=== PATIENT | female | born 1965 | race Caucasian/White ===

== ENCOUNTER 2022-06-09 21:03 | Emergency (ER) | payer BC ==
[~2022-06-09] VITALS: Ht 172 cm; Wt 106.0 kg
--- NOTE | 2022-06-09 21:25 | ED General ---
General Chief Complaint: Dizziness/Syncope Stated Complaint: DIZZY - NAUSEA Nursing Triage Note: PT TO ED W/ C/O DIZZINESS ONSET 30 MIN HOSPITAL NURSE LIAISON. DENIES ANY INJURIES AT THIS TIME. NO OTHER C/O VOICED Source of Information: Patient Exam Limitations: No Limitations History of Present Illness Date Seen by Provider: Jun 09, 2022 Time Seen by Provider: 21:15 Initial Comments Patient is a 56-year-old female who presents to the emergency room with a chief complaint of concern for severe dizziness, she states "vertigo". She states approximately 30 minutes to an hour ago she was laying in her recliner chair on her right side, she got up very quickly and had sudden onset of room spinning sensation. She denies any headache, vision changes, speech or swallowing difficulties. No unilateral weakness, numbness or tingling. No chest pain, palpitations or shortness of breath. She has been nauseous. No bowel or bladder problems. No sick contacts recently. She takes no daily medications. She states she is a former diabetic several years ago but is not currently on medications. Sees Dr. PINK as scheduled last visit for a "well check" was about 6 months ago. She denies ringing in the ears or hearing loss. She has not taken anything for the symptoms. No history of head trauma. She states as long as she remains still she is asymptomatic. She is very scared that the symptoms return. Timing/Duration: 1 Hour Severity: Severe Modifying Factors: improves with Immobilization; worse with Movement Associated Systoms: Nausea/Vomiting, Other ("bloated") Allergies and Home Medications Allergies Coded Allergies: No Known Drug Allergies (Unverified , 06/09/22) Patient Home Medication List Home Medication List Reviewed: Yes Meclizine HCl (Meclizine HCl) 25 Mg Tablet, 25 MG PO Q6H PRN for dizziness Prescribed by: BALA DAMON on 06/09/222300 Ondansetron (Ondansetron Odt) 4 Mg Tab.rapdis, 4 MG SL Q8H PRN for NAUSEA/VOMITING Prescribed by: BALA DAMON on 06/09/222300 Review of Systems Review of Systems Constitutional: see HPI EENTM: no symptoms reported Respiratory: no symptoms reported Cardiovascular: no symptoms reported Gastrointestinal: nausea Genitourinary: no symptoms reported Musculoskeletal: no symptoms reported Skin: no symptoms reported Psychiatric/Neurological: Other (dizzy "vertigo") All Other Systems Reviewed Negative Unless Noted: Yes Past Rkrjjrs-Ymtwzu-[id number] Hx Patient Social History Tobacco Use?: No Use of E-Cig and/or Vaping dev: No Substance use?: No Alcohol Use?: No Pt feels they are or have been: No Past Medical History Surgery/Hospitalization HX: C SECTION X2 Physical Exam Vital Signs Vital Signs - First Documented 06/09/22 21:08 Temp 36.3 Pulse 89 Resp 20 B/P (MAP) 186/87 (120) Pulse Ox 95 O2 Delivery Room Air Capillary Refill : Less Than 3 Seconds Height, Weight, BMI Height: '" Weight: lbs. oz. kg; 35.00 BMI Method: General Appearance: WD/WN, Anxious, Obese Eyes: Bilateral Eye Normal Inspection, Bilateral Eye PERRL, Bilateral Eye EOMI HEENT: PERRL/EOMI, TMs Normal, Normal ENT Inspection, Pharynx Normal Neck: Normal Inspection Respiratory: Lungs Clear, Normal Breath Sounds, No Accessory Muscle Use, No Respiratory Distress Cardiovascular: Regular Rate, Rhythm Gastrointestinal: Non Tender, Soft Extremity: Normal Inspection, Normal Range of Motion, No Pedal Edema Neurologic/Psychiatric: Alert, Oriented x3, No Motor/Sensory Deficits, Normal Mood/Affect, nurse transition II-XII Norm as Tested; No Abnormal Cerebellar Tests; Other (normal finger to nose) Skin: Normal Color, Warm/Dry Progress/Results/Core Measures Suspected Sepsis SIRS Temperature: Pulse: 89 Respiratory Rate: 20 Blood Pressure 186 /87 Mean: 120 Laboratory Tests 06/09/22 21:28: Creatinine 1.13 Results/Orders Lab Results Laboratory Tests Test 06/09/22 21:28 Range/Units Sodium Level 140 135-145 MMOL/L Potassium Level 3.6 3.6-5.0 MMOL/L Chloride Level 108 H 98-107 MMOL/L Carbon Dioxide Level 19 L 21-32 MMOL/L Anion Gap 13 5-14 MMOL/L Blood Urea Nitrogen 21 H 7-18 MG/DL Creatinine 1.13 0.60-1.30 MG/DL Estimat Glomerular Filtration Rate 57 BUN/Creatinine Ratio 19 Glucose Level 154 H 70-105 MG/DL Calcium Level 9.5 8.5-10.1 MG/DL My Orders Orders - BALA DAMON MD Ed Iv/Invasive Line Start (06/09/22 21:21) Basic Metabolic Panel (06/09/22 21:21) Diazepam Injection (Valium Injection) (06/09/22 21:30) Ondansetron Injection (Zofran Injectio (06/09/22 21:30) Ns Iv 1000 Ml (Sodium Chloride 0.9%) (06/09/22 21:30) Simethicone Tablet (Mylicon Chewable Tab (06/09/22 21:30) Rx-Meclizine Hcl (Rx-Antivert) (06/09/22 22:56) Rx-Ondansetron Po (Rx-Zofran Po) (06/09/22 22:56) Medications Given in ED Current Medications Medications Dose Ordered Sig/Dorcas Route Start Time Stop Time Status Last Admin Dose Admin Diazepam 2 mg ONCE ONCE IVP 06/09/22 21:30 06/09/22 21:31 DC 06/09/22 21:36 2 MG Ondansetron HCl 4 mg ONCE ONCE IVP 06/09/22 21:30 06/09/22 21:31 DC 06/09/22 21:36 4 MG Simethicone 160 mg ONCE ONCE PO 06/09/22 21:30 06/09/22 21:31 DC 06/09/22 21:55 160 MG Vital Signs/I&O 06/09/22 21:08 Temp 36.3 Pulse 89 Resp 20 B/P (MAP) 186/87 (120) Pulse Ox 95 O2 Delivery Room Air Capillary Refill : Less Than 3 Seconds Blood Pressure Mean: 120 Progress Note : Time: 22:57 Progress Note Patient seen and evaluated, 56-year-old with vertiginous complaints. Evaluation today includes a physical exam, basic metabolic panel. Based on history and physical exam concerning for acute cerebellar insult, vertigo, dehydration, electrolyte disturbance. After examination, treatment with IV Valium, fluids and Zofran the patient is remaining completely asymptomatic. Her chemistry is pertinent for slightly elevated glucose in the 150s. Otherwise normal electrolytes. Her exam was unremarkable for any acute focal neurologic deficit. Consideration for advanced imaging, CT head considered however history and physical do not support the need. She states that she really has not felt like she has been "spinning" since arrival. I did get her up and ambulate her, no wide-based ataxic gait. She is not dizzy currently. Her nausea is improved. She still feels "bloated". Vital signs are stable. We will send her home with meclizine and Zofran. Return precautions discussed with the patient. She verbalized understanding all questions are sought and answered. She is improved at discharge. Departure Impression Primary Impression: Vertigo Disposition: HOME, SELF-CARE Condition: Improved Departure-Patient Inst. Decision time for Depature: 22:59 Referrals: ABILIO PINK DO (PCP/Family) Primary Care Physician Patient Instructions: Vertigo (a Type of Dizziness) (DC) Add. Discharge Instructions: Fluids to stay well-hydrated. Use the meclizine every 6 hours as needed for dizziness. Zofran 4 mg every 6-8 hours as needed for nausea. If you develop worsening dizziness especially with headache, vision changes, balance or coordination problems please return to the emergency department for reevaluation. Please follow-up with Dr. PINK for further evaluation. Scripts Ondansetron (Ondansetron Odt) 4 Mg Tab.rapdis 4 MG SL Q8H PRN for NAUSEA/VOMITING, #10 TAB Prov: BALA DAMON MD 06/09/22 Meclizine HCl (Meclizine HCl) 25 Mg Tablet 25 MG PO Q6H PRN for dizziness, #20 TAB Prov: BALA DAMON MD 06/09/22 Work/School Note: Work Release Form Date Seen in the Emergency Department: Jun 09, 2022 Return to Work: Jun 11, 2022 Copy Copies To 1: ABILIO PINK KATHRYN M MD Jun 09, 2022 21:24
[2022-06-09] MEDS ORDERED: NS IV 1000 ML 1,000 ML IV SCH (21:30)
[2022-06-09] MEDS ORDERED: ONDANSETRON 4 MG/2 ML (SDV) Z0FRAN IVP ONE (21:30)
[2022-06-09] MEDS ORDERED: SIMETHICONE 80 MG (MYLICON) CHEW PO ONE (21:30)
[2022-06-09 21:48] LABS: POTASSIUM 3.6 MMOL/L (3.6-5.0)
[2022-06-09 21:49] LABS: CALCIUM 9.5 MG/DL (8.5-10.1)
[2022-06-09 21:53] LABS: CREATININE SERUM 1.13 MG/DL (0.60-1.30)
[2022-06-09] MEDS ORDERED: RX-ONDANSETRON 4 MG ODT (ZOFRAN) PPK #4 PO STA (22:56)
[2022-06-09] MEDS ORDERED: RX-MECLIZINE HCL (ANTIVERT) 25 MG TAB #4 PPK PO STA (22:56)
[2022-06-09] MEDS ORDERED: ONDA4TAB11 SL (23:01)
[2022-06-09] MEDS ORDERED: MECL-149 PO (23:01)
[2022-06-09 23:27] VITALS: BP 170/82
== END 2022-06-09 23:32 | disposition home or self-care (01) ==
LOC: EDUNIT# 21:03 → ER 21:04
DX: R42 Dizziness and giddiness (principal); E11.9 Type 2 diabetes mellitus without complications; R11.2 Nausea with vomiting, unspecified
CPT/HCPCS: 36415; 80048; 99281